=== PATIENT | female | born 1990 | race Caucasian/White ===

== ENCOUNTER 2017-09-19 18:00 | Observation (INO) | payer SELFPAY ==
[2017-09-19 18:28] LABS: #Eosinphils 0.2 thou/uL (0.0-0.7); #Lymphocytes 2.5 thou/uL (1.20-3.40); #Monocytes 0.3 thou/uL (0.11-0.59); #Neutrophils 2.6 thou/uL (1.40-6.50); %Basophils 0.8 % (0.0-1.0); %Eosinophils 3.5 % (0.0-10.0); %Monocytes 5.9 % (0.0-10.0); %Neutrophils 45.8 % (42.0-75.0); Hemoglobin 15.3 g/dL (12.0-16.0); Mean Corpuscular HGB CONC 34.7 g/dL (32.0-36.0); Mean Corpuscular Hemoglobin 36.1 pg (27.0-31.0); Mean Platelet Volume 6.3 fL (7.4-10.4); Platelet Count 232 thou/uL (130-400); RBC Distribution Width 11.7 % (11.5-14.5); Red Blood Cell (RBC) Count 4.24 mill/uL (4.20-5.40); White Blood Cell (WBC) Count 5.7 thou/uL (4.8-10.8)
[2017-09-19 18:43] LABS: BHCG - Serum Negative (NEGATIVE); Pregs Control Background? CLEAR/WHITE (CLR/WHITE); Pregs Control Bar Appear? YES (CONTROL BAR)
[2017-09-19 19:09] LABS: ALT (SGPT) 21 U/L (8-55); AST (SGOT) 14 U/L (5-34); Albumin 4.4 g/dL (3.5-5.0); Alkaline Phosphatase 55 U/L (40-150); Anion Gap 11 mmol/L (10-20); BUN (Urea Nitrogen) 8 mg/dL (7.0-18.7); Bilirubin, Total 0.5 mg/dL (0.2-1.2); Calc. Creatinine Clearance 0 mL/min (70-130); Calcium 9.3 mg/dL (7.8-10.44); Carbon Dioxide 23 mmol/L (22-29); Chloride 108 mmol/L (98-107); Estimated GFR-MDRD 86; Globulin 3.3 g/dL (2.4-3.5); Glucose 84 mg/dL (70-105); Lipase 31 U/L (8-78); Protein, Total 7.7 g/dL (6.0-8.3); Sodium 138 mmol/L (136-145)
[2017-09-19] MEDS ORDERED: Pantoprazole 40 MG VIAL ONE (19:41)
[2017-09-19] MEDS ORDERED: Ketorolac Tromethamine 30 MG/ML VIAL ONE (19:41)
--- NOTE | 2017-09-19 20:09 | ULT ---
GALLBLADDER ULTRASOUND: History: Abdominal pain. FINDINGS: The liver is mildly enlarged measuring up to 19 cm. There are echogenic gallstones seen within the ga llbladder lumen. Gallbladder wall does not appear thickened. The common duct, however, is dilated koby suring at 9 mm. No definite evidence of intrahepatic ductal dilatation. The visualized pancreas appea rs unremarkable. Right kidney is unremarkable. IMPRESSION: 1. Cholelithiasis. 2. Dilated common bile duct. 3. Technologist describes a negative Barakat sign. POS: [facility]
[2017-09-19 20:48] LABS: Bilirubin Negative (Negative); Blood, Urine Negative (Negative); Clarity CLEAR (Clear); Glucose, Urine (Dipstick) Negative (Negative); Leukocyte Negative (Negative); Nitrite Negative (Negative); Protein, Urine (Dipstick) Negative (Neg-Trace); Urobilinogen 0.2 mg/dL (0.2-1.0)
[2017-09-19] MEDS ORDERED: Promethazine HCl 25 MG/ML VIAL SLOW IVP PRN (23:04)
[2017-09-19] MEDS ORDERED: Acetaminophen 325 MG TAB PO PRN (23:04)
[2017-09-19] MEDS ORDERED: Ondansetron ODT 4 MG TAB SL PRN (23:04)
[2017-09-19] MEDS ORDERED: Ondansetron HCl/PF 4 MG/2 ML Vial IVP PRN ×2 (23:04→23:06)
[2017-09-19] MEDS ORDERED: Sodium Chloride 0.9% 1,000 ML IV SCH (23:04)
[2017-09-19] MEDS ORDERED: Morphine 2 MG/ML SYRINGE SLOW IVP PRN (23:06)
[2017-09-19] MEDS ORDERED: Dextrose 50% Abboject 50 ML SYRINGE SLOW IVP PRN (23:06)
[2017-09-19] MEDS ORDERED: Dextrose 5% in Water 1,000 ML IV PRN (23:06)
[2017-09-19] MEDS ORDERED: Famotidine/PF 20 mg/2ml Vial SLOW IVP SCH (23:15)
--- NOTE | 2017-09-20 00:36 | HP ---
DATE OF ADMISSION: 09/19/2017 CHIEF COMPLAINT: Epigastric abdominal pain, nausea, vomiting, cholelithiasis. HISTORY OF PRESENT ILLNESS: Patient is a 27-year-old morbidly obese white female. She gives a 6-mon th history of known cholelithiasis. She never followed up for surgery regarding this, because the pa in would subside. She notes that about a week ago, she developed epigastric abdominal pain with naus ea and vomiting. She subsequently states that she has been unable to keep anything down and has had repeated episodes of nausea or vomiting as well as ongoing episodes of epigastric and right upper esperanza drant pain. She presented to the emergency room for evaluation regarding this. She was seen by Dr. Jose Brown, who performed evaluation in the emergency room and subsequently consulted myself. A gallbladder ultrasound reveals cholelithiasis with a 9 mm common bile duct. Laboratory studies rev ealed an essentially normal CBC with white blood cell count of 5.7 and hemoglobin 15.3. Chemistry pr ofile reveals normal values including liver function tests and BUN and creatinine. test is negative. PAST MEDICAL HISTORY: Significant for depression. PAST SURGICAL HISTORY: She has had surgery for nasal fracture, section x2, appendectomy. ALLERGIES: PENICILLIN and SULFA. CURRENT MEDICATIONS: Lexapro and she was placed on omeprazole today. She was unable to hold down th e medication or vomited it. PRIMARY CARE PHYSICIAN: Marlene Arechiga. PERSONAL/SOCIAL HISTORY: She has a boyfriend. She has 2 children. She works at [employer]. She s mokes about half-pack of cigarettes per day. She drinks alcohol occasionally. REVIEW OF SYSTEMS: Otherwise, unremarkable. FAMILY HISTORY: Noncontributory. PHYSICAL EXAMINATION: VITAL SIGNS: She is 5 feet 5 inches tall, weighs about 280 pounds. She is afebrile. Vital signs wi thin normal limits. GENERAL: Well-developed, well-nourished, pleasant, morbidly obese white female resting in bed in no acute distress. Her aunt is present at bedside. She is alert and oriented x3. HEAD, EARS, EYES, NOSE, AND THROAT: Unremarkable. NECK: Supple, without mass or tenderness. LUNGS: Clear to auscultation. CARDIAC: Regular rate and rhythm without murmur. ABDOMEN: Morbidly obese, but soft. She appears to have some discomfort upon palpation in the epigas trium and right upper quadrant, but it is difficult to discern secondary to her obesity. EXTREMITIES: Unremarkable. ASSESSMENT: Patient with apparently severely symptomatic cholelithiasis. Although she does not pres ent with laboratory evidence of dehydration or cholecystitis, her persistent nausea and vomiting asso ciated with her discomfort and known cholelithiasis would dictate that the prudence of proceeding wit h cholecystectomy at this time. PLAN: I discussed the operation in detail with the patient as well as potential risks. She understa nds and agrees to proceed with surgery at this time. She will be admitted for hydration, her laparos copic cholecystectomy, and cholangiogram will be performed tomorrow. I will perform a cholangiogram secondary to the appearance of her duct at 9 mm.
[2017-09-20 01:15] VITALS: BMI 47.2
[2017-09-20] MEDS: D5 1/2 NS w/20 mEq KCL 1,000 ML IV SCH ×3 (01:46→15:47)
[2017-09-20] MEDS ORDERED: Famotidine/PF 20 mg/2ml Vial SLOW IVP SCH (09:00)
[2017-09-20] MEDS ORDERED: Ketorolac Tromethamine 30 MG/ML VIAL ONE (09:36)
[2017-09-20] MEDS ORDERED: cefOXitin 2 GM, Syringe 1 ML in Sterile Water 10 ML SLOW IVP SCH (10:00)
[2017-09-20] MEDS ORDERED: Ketorolac Tromethamine 30 MG/ML VIAL IVP SCH (10:00)
[2017-09-20] MEDS ORDERED: Acetaminophen 1,000 MG in Premix Bag 1 BAG IVPB SCH (10:00)
[2017-09-20] MEDS ORDERED: Bupivacaine/Epinephrine 0.25% 30 ML VIAL ONE (10:20)
[2017-09-20] MEDS ORDERED: Fentanyl 250 MCG/5 ML VIAL ONE (10:24)
[2017-09-20] MEDS ORDERED: Midazolam HCl 2 mg/2 ml Vial ONE (10:24)
[2017-09-20] MEDS ORDERED: Promethazine HCl 25 MG/ML VIAL ONE (10:24)
[2017-09-20] MEDS ORDERED: Iothalamate Meglumine 60% 50 ML VIAL FS ONE (11:23)
--- NOTE | 2017-09-20 13:04 | RAD ---
INTRAOPERATIVE CHOLANGIOGRAM FLUOROSCOPY: HISTORY: Cholecystitis. FINDINGS: Intraoperative fluoroscopy was provided for cholangiogram, as performed by Dr. Nazario. Single spot fluoroscopic images of operative hardware over the gallbladder fossa with hemostasis clips overlying the cystic duct. There is opacification of a nondilated common duct with contrast extending into the duodenum. No filling defects are visible. POS: [facility]
[2017-09-20] MEDS ORDERED: HYDROcodone/Acetaminophen 10/325 mg Tablet PO PRN ×2 (13:54)
[2017-09-20 15:56] VITALS: BP 154/101; TEMP 98.9
[2017-09-20] MEDS ORDERED: Lidocaine 1% PF 5 ML VIAL ONE (17:14)
[2017-09-20] MEDS ORDERED: Glycopyrrolate 0.2 MG/ML 5 ML SYRINGE ONE ×2 (17:14)
[2017-09-20] MEDS ORDERED: Dexamethasone 20 MG/5 ML VIAL ONE (17:14)
[2017-09-20] MEDS ORDERED: Propofol 200 MG/20 ML VIAL ONE (17:14)
[2017-09-20] MEDS ORDERED: Ondansetron HCl/PF 4 MG/2 ML Vial ONE (17:14)
--- NOTE | 2017-09-21 13:54 | OP ---
DATE OF PROCEDURE: 09/20/2017 PREOPERATIVE DIAGNOSIS: Symptomatic cholelithiasis, cholecystitis. POSTOPERATIVE DIAGNOSES: Symptomatic cholelithiasis, cholecystitis. OPERATION PERFORMED: Laparoscopic cholecystectomy with intraoperative cholangiogram. SURGEON: Dr. Akira Nazario ANESTHESIA: General endotracheal. INDICATIONS: The patient is a morbidly obese 27-year-old white female. She presented to the emergen cy room complaining of persistent pain and inability to tolerate oral intake. She has recognized cho lelithiasis and by ultrasound was felt to have a 9 mm common bile duct. For this reason, I have lyssa mmended a cholangiogram. OPERATIVE PROCEDURE IN DETAIL: Informed consent was obtained. The patient was taken to the operatin g room where general endotracheal anesthesia was given with the patient in supine position. After pr epped with ChloraPrep and draped in sterile fashion, local anesthetic was infiltrated and 5 mm right upper quadrant incision was created. Veress needle was passed through the peritoneal cavity. Pneumo peritoneum established using carbon dioxide up to a pressure of 15 mmHg. A 5 mm trocar passed through this same incision. Laparoscopic camera was passed through this port. Under direct vision, an 11 m m umbilical port was placed as well as two additional 5 mm upper quadrant ports. Attention was turne d to the gallbladder. This was without evidence of significant inflammatory change. It was grasped and retracted in cephalad direction. The infundibulum was grasped and retracted laterally and inferi javier. There were adhesions to the gallbladder and the inferior edge of the liver, indicating possibl e prior inflammatory process. These adhesions were all carefully taken down using electrocautery. A ttention was then turned to the apex of the gallbladder. Careful dissection was carried out identify ing the cystic duct and cystic artery. The artery was divided between clips leaving two on the side to remain within the abdomen. The duct was clipped proximally and a ductotomy was created through wh ich a cholangiogram was performed. This revealed normal ductal anatomy with no ductal dilatation, no filling defect, and easy emptying into the duodenum. The cholangiogram was removed, the duct was do ubly clipped and divided. The gallbladder was then carefully dissected out of the gallbladder fossa of the liver and removed through the umbilical port site. Fascia was closed with 0 Vicryl suture usi ng a GraNee needle. The gallbladder fossa was irrigated and cauterized. All ports and instruments r emoved under direct vision. Pneumoperitoneum was carefully evacuated. Quarter percent Marcaine with epinephrine was infiltrated at each port site. Skin edges approximated with 4-0 Monocryl subcuticul ar suture. Dermabond was placed externally. There were no complications. The patient tolerated the procedure well and was taken to recovery room in stable condition.
--- NOTE | 2017-09-27 19:57 | EKG ---
Test Reason : PREOP Blood Pressure : / mmHG Vent. Rate : 044 BPM Atrial Rate : 044 BPM P-R Int : 140 ms QRS Dur : 088 ms QT Int : 438 ms P-R-T Axes : 008 032 011 degrees QTc Int : 374 ms Marked sinus bradycardia with Premature atrial complexes Low voltage QRS Abnormal ECG When compared with ECG of 03-OCT-2016 01:09, Premature atrial complexes are now Present Vent. rate has decreased BY 32 BPM QT has shortened Confirmed by ESTELITA QUEEN ([id number]) on 09/27/2017 7:57:06 PM Referred By: BLANCHE Confirmed By:ESTELITA QUEEN
== END 2017-09-20 16:50 | disposition home or self-care (01) ==
LOC: ERS 18:00 → SURG B 23:02
PROVIDERS: ADMIT Specialist; ATTEND Specialist
PROC: 0FT44ZZ Resection of Gallbladder, Percutaneous Endoscopic Approach (ICD-10-PCS; principal; 2017-09-20)
PROC: BF141ZZ Fluoroscopy of Gallbladder, Bile Ducts and Pancreatic Ducts using Low Osmolar Contrast (ICD-10-PCS; 2017-09-20)
DX: K80.10 Calculus of gallbladder with chronic cholecystitis without obstruction (principal); F41.9 Anxiety disorder, unspecified; F17.210 Nicotine dependence, cigarettes, uncomplicated; Z88.0 Allergy status to penicillin; Z88.2 Allergy status to sulfonamides; Z79.2 Long term (current) use of antibiotics; Z98.890 Other specified postprocedural states
CPT/HCPCS: 36415; 47532; 76705; 80053; 81003; 82150; 83690; 84703; 85025; 88304; 93005; 93010; 96374; 96375; 96376; A4216; C9113; G0378; J0131; J0694; J1100; J1885; J2001; J2250; J2270; J2405; J2550; J2704; J3010; Q9961; S0028

== ENCOUNTER 2017-10-02 04:41 | Emergency (ER) | payer SELFPAY ==
[2017-10-02 05:25] LABS: #Eosinphils 0.2 thou/uL (0.0-0.7); #Lymphocytes 2.4 thou/uL (1.20-3.40); #Monocytes 0.4 thou/uL (0.11-0.59); #Neutrophils 3.7 thou/uL (1.40-6.50); %Basophils 0.7 % (0.0-1.0); %Eosinophils 3.1 % (0.0-10.0); %Lymphocytes 35.9 % (21.0-51.0); %Monocytes 5.5 % (0.0-10.0); %Neutrophils 54.9 % (42.0-75.0); Hemoglobin 13.5 g/dL (12.0-16.0); Mean Corpuscular HGB CONC 34.9 g/dL (32.0-36.0); Mean Corpuscular Hemoglobin 36.4 pg (27.0-31.0); Mean Platelet Volume 5.8 fL (7.4-10.4); Platelet Count 216 thou/uL (130-400); RBC Distribution Width 11.3 % (11.5-14.5); White Blood Cell (WBC) Count 6.8 thou/uL (4.8-10.8)
[2017-10-02 05:44] LABS: ALT (SGPT) 17 U/L (8-55); AST (SGOT) 11 U/L (5-34); Albumin 3.8 g/dL (3.5-5.0); Alkaline Phosphatase 52 U/L (40-150); Anion Gap 9 mmol/L (10-20); BUN (Urea Nitrogen) 12 mg/dL (7.0-18.7); Bilirubin, Total 0.4 mg/dL (0.2-1.2); Calc. Creatinine Clearance 0 mL/min (70-130); Calcium 8.4 mg/dL (7.8-10.44); Carbon Dioxide 23 mmol/L (22-29); Chloride 111 mmol/L (98-107); Estimated GFR-MDRD 79; Globulin 2.6 g/dL (2.4-3.5); Glucose 104 mg/dL (70-105); Lipase 60 U/L (8-78); Potassium 3.9 mmol/L (3.5-5.1); Protein, Total 6.4 g/dL (6.0-8.3); Sodium 139 mmol/L (136-145)
[2017-10-02] MEDS ORDERED: Morphine 4 MG/ML VIAL ONE (06:10)
[2017-10-02] MEDS ORDERED: Ondansetron HCl/PF 4 MG/2 ML Vial ONE (06:11)
[2017-10-02 06:39] LABS: Bilirubin Negative (Negative); Blood, Urine Negative (Negative); Clarity CLEAR (Clear); Glucose, Urine (Dipstick) Negative (Negative); Leukocyte Negative (Negative); Nitrite Negative (Negative); Protein, Urine (Dipstick) Negative (Neg-Trace); Specific Gravity, Urine 1.023 (1.002-1.036); pH, Urine 6.5 (5.0-9.0)
[2017-10-02 06:40] LABS: Pregnancy Test - Urine (BHCG) Negative (Negative)
[2017-10-02 06:41] LABS: Pregu Control Background? CLEAR/WHITE (CLR/WHITE); Pregu Control Bar Appear? YES (CONTROL BAR); Specific Gravity 1.023 (1.002-1.036)
[2017-10-02] MEDS ORDERED: ISOVUE-370 76%-LOCM 1 ML ONE (13:01)
--- NOTE | 2017-10-02 13:57 | CT ---
PRELIMINARY REPORT/[facility]/EMERGENCY AFTER HOURS PROCEDURE: EXAM: CT Abdomen and Pelvis With Intravenous Contrast CLINICAL HISTORY: 27 years old, female; Pain; Abdominal pain; Localized; Right upper quadrant (ruq); Prior surgery; Pat ient HX: Er 6; Pt has ezekiel 2 weeks ago. Pt states for the past 3 days she has had ruq pain radiating to her back. Some nausea with no vomiting. *iv only per ordering doctor TECHNIQUE: Axial computed tomography images of the abdomen and pelvis with intravenous contrast. Coronal reformatted images were created and reviewed. COMPARISON: No relevant prior studies available. FINDINGS: Mildly limited due to streak artifact Lower thorax: No acute findings. ABDOMEN: Liver: Mild hepatomegaly No mass. Gallbladder and bile ducts: Prior cholecystectomy. Question trace fluid in the gallbladder fossa No d uctal dilation. Pancreas: Unremarkable. No mass. No ductal dilation. Spleen: Unremarkable. No splenomegaly. Adrenals: Unremarkable. No mass. Kidneys and ureters: Question punctate right renal calculus No solid mass. No hydronephrosis. Stomach and bowel: Unremarkable. No obstruction. No mucosal thickening. Appendix: No findings to suggest acute appendicitis. PELVIS: Bladder: Decompressed Reproductive: Question fibroid uterus ABDOMEN and PELVIS: Intraperitoneal space: Unremarkable. No free air. No significant fluid collection. Bones/joints: No acute fracture. No dislocation. Soft tissues: Unremarkable. Vasculature: Unremarkable. No abdominal aortic aneurysm. Lymph nodes: Unremarkable. No enlarged lymph nodes. IMPRESSION: Status post cholecystectomy with trace residual fluid in the gallbladder fossa Question punctate nonobstructing right renal calculus Thank you for allowing us to participate in the care of your patient. Dictated and Authenticated by: See Aguilar MD 10/02/2017 7:32 AM Central Time ([place] & [place]) FINAL REPORT EMERGENCY AFTER HOURS CT ABDOMEN AND PELVIS WITH IV CONTRAST: Date: 10/02/17 IMPRESSION: I agree with the preliminary interpretation given by vRlalo. There is no definite acute abnormality inv olving the abdomen or pelvis. Postop cholecystectomy changes are seen without significant fluid colle ction in the gallbladder fossa. No evidence for free intraperitoneal fluid. There is trace pneumoperi toneum in the right upper quadrant, which may be postoperative in nature given the lack of additional findings such as fat stranding and the proximity to the patient's surgical date. Findings discussed with Dr. Gerard at 0751 hours on 10/02/17. CODE CR. POS: [facility]
== END 2017-10-02 08:01 | disposition home or self-care (01) ==
LOC: ERS 04:41
DX: R10.9 Unspecified abdominal pain (principal); F41.9 Anxiety disorder, unspecified; F31.9 Bipolar disorder, unspecified; F17.210 Nicotine dependence, cigarettes, uncomplicated
CPT/HCPCS: 36415; 74177; 80053; 81003; 81025; 83690; 85025; 96374; 96375; J2270; J2405

== ENCOUNTER 2017-10-13 18:52 | Emergency (ER) | payer SELFPAY ==
[2017-10-13 20:12] LABS: Bilirubin Small (Negative); Blood, Urine Negative (Negative); Clarity CLOUDY (Clear); Glucose, Urine (Dipstick) Negative (Negative); Leukocyte Small (Negative); Nitrite Negative (Negative); Protein, Urine (Dipstick) 100 mg/dL (Neg-Trace)
[2017-10-13 20:14] LABS: Bacteria/HPF 2+ HPF (None Seen); Pathc Cast-AUWi Flag 2.32 (0-2.49); Squamous Epithelial 21-50 HPF (0-3)
[2017-10-13 20:26] LABS: Hyaline Casts/LPF 0-3 HYALINE CAST LPF (0-3 Hyaline); RBC/HPF 0-3 HPF (0-3); Renal Epithelial None Seen HPF (0-3); Transitional Epithelial NONE SEEN HPF (0-3)
[2017-10-13] MEDS ORDERED: Mag-Al 1200 mg/1200 mg/30 ML UDCUP ONE (20:36)
[2017-10-13] MEDS ORDERED: Lidocaine Viscous Sol 2% 15 ml UD Cup ONE (20:36)
[2017-10-13] MEDS ORDERED: Metoclopramide HCl 10 MG/2 ML VIAL ONE (20:36)
[2017-10-13 20:53] LABS: Pregnancy Test - Urine (BHCG) Negative (Negative); Pregu Control Background? CLEAR/WHITE (CLR/WHITE); Pregu Control Bar Appear? YES (CONTROL BAR)
--- NOTE | 2017-10-13 21:03 | RAD ---
CHEST PA AND LATERAL: 10/13/17 HISTORY: 27-year-old female with history of cough and panic attack. COMPARISON: 10/03/16. FINDINGS: heart size is within normal limits. The lungs are clear. IMPRESSION: No acute intrathoracic disease. POS: [facility]
--- NOTE | 2017-10-16 00:27 | EKG ---
Test Reason : Blood Pressure : / mmHG Vent. Rate : 069 BPM Atrial Rate : 069 BPM P-R Int : 150 ms QRS Dur : 084 ms QT Int : 404 ms P-R-T Axes : 036 019 006 degrees QTc Int : 432 ms Normal sinus rhythm with sinus arrhythmia Normal ECG Confirmed by NOEL TEJADA ([id number]), art editor BRITTNY KNGIHT ([id number]) on 10/16/2017 12:25:36 AM Referred By: Confirmed By:NOEL TEJADA
== END 2017-10-13 22:51 | disposition home or self-care (01) ==
LOC: ERS 18:52
DX: F43.9 Reaction to severe stress, unspecified (principal); F41.9 Anxiety disorder, unspecified; F31.9 Bipolar disorder, unspecified; F17.210 Nicotine dependence, cigarettes, uncomplicated; Z71.6 Tobacco abuse counseling; Z79.899 Other long term (current) drug therapy
CPT/HCPCS: 71046; 81003; 81015; 81025; 93005; 96365; 96366; 99406; J2765

== ENCOUNTER 2018-08-07 18:21 | Emergency (ER) | payer SELFPAY | END 2018-08-07 20:10 | disposition home or self-care (01) | LOC: ERS 18:21 | DX: K02.9 Dental caries, unspecified (principal); F31.9 Bipolar disorder, unspecified; F41.9 Anxiety disorder, unspecified; F17.210 Nicotine dependence, cigarettes, uncomplicated; Z79.899 Other long term (current) drug therapy; Z71.6 Tobacco abuse counseling | CPT/HCPCS: 99406 ==

== ENCOUNTER 2019-02-05 09:56 | Emergency (ER) | payer SELFPAY ==
--- NOTE | 2019-02-05 10:35 | RAD ---
XR Knee Rt 4 View STANDARD HISTORY: Injury, right knee pain FINDINGS: No fracture or dislocation is identified.
[2019-02-05] MEDS ORDERED: Ketorolac Tromethamine 60 MG/2 ML VIAL ONE (10:45)
== END 2019-02-05 11:15 | disposition home or self-care (01) ==
LOC: ERS 09:56
DX: S83.91XA Sprain of unspecified site of right knee, initial encounter (principal); F41.9 Anxiety disorder, unspecified; F31.9 Bipolar disorder, unspecified; F17.210 Nicotine dependence, cigarettes, uncomplicated; V19.9XXA Pedal cyclist (driver) (passenger) injured in unspecified traffic accident, initial encounter
CPT/HCPCS: 96372; J1885

== ENCOUNTER 2019-02-08 16:40 | Emergency (ER) | payer SELFPAY ==
[2019-02-08] MEDS ORDERED: Ketorolac Tromethamine 30 MG/ML VIAL ONE (17:10)
[2019-02-08] MEDS ORDERED: Acetaminophen/Codeine 30-300mg Tablet ONE (17:10)
== END 2019-02-08 17:23 | disposition home or self-care (01) ==
LOC: ERS 16:40
DX: M25.561 Pain in right knee (principal); F17.210 Nicotine dependence, cigarettes, uncomplicated; F31.9 Bipolar disorder, unspecified; F41.9 Anxiety disorder, unspecified; Z79.899 Other long term (current) drug therapy
CPT/HCPCS: 96372; 99283; J1885

== ENCOUNTER 2019-06-25 01:00 | Emergency (ER) | payer SELFPAY ==
[2019-06-25 01:52] LABS: #Eosinphils 0.3 thou/uL (0.0-0.7); #Lymphocytes 2.7 thou/uL (1.20-3.40); #Monocytes 0.3 thou/uL (0.11-0.59); #Neutrophils 3.1 thou/uL (1.40-6.50); %Basophils 0.5 % (0.0-1.0); %Eosinophils 4.1 % (0.0-10.0); %Lymphocytes 41.8 % (21.0-51.0); %Monocytes 5.3 % (0.0-10.0); %Neutrophils 48.3 % (42.0-75.0); Hemoglobin 14.9 g/dL (12.0-16.0); Mean Corpuscular HGB CONC 34.5 g/dL (32.0-36.0); Mean Corpuscular Hemoglobin 36.8 pg (27.0-31.0); Mean Platelet Volume 6.8 fL (7.4-10.4); Platelet Count 209 thou/uL (130-400); RBC Distribution Width 11.1 % (11.5-14.5); Red Blood Cell (RBC) Count 4.04 mill/uL (4.20-5.40); White Blood Cell (WBC) Count 6.5 thou/uL (4.8-10.8)
[2019-06-25 02:01] LABS: ALT (SGPT) 24 U/L (8-55); AST (SGOT) 14 U/L (5-34); Albumin 4.2 g/dL (3.5-5.0); Alkaline Phosphatase 54 U/L (40-110); Anion Gap 12 mmol/L (10-20); BUN (Urea Nitrogen) 12 mg/dL (7.0-18.7); Bilirubin, Total 0.3 mg/dL (0.2-1.2); Calc. Creatinine Clearance 0 mL/min (70-130); Calcium 9.5 mg/dL (7.8-10.44); Carbon Dioxide 27 mmol/L (22-29); Chloride 105 mmol/L (98-107); Estimated GFR-MDRD Greater than 90; Globulin 3.2 g/dL (2.4-3.5); Glucose 93 mg/dL (70-105); Protein, Total 7.4 g/dL (6.0-8.3); Sodium 140 mmol/L (136-145)
[2019-06-25] MEDS ORDERED: Ibuprofen 200 MG TAB ONE (03:01)
--- NOTE | 2019-06-25 08:06 | RAD ---
CHEST 1 VIEW PORTABLE: Date: 06/25/19 HISTORY: Chest pain. FINDINGS: Heart size is normal. The lungs are clear. No pneumonia, edema, or pleural effusion. IMPRESSION: No acute intrathoracic disease. Stable from prior study. POS: [facility]
== END 2019-06-25 03:18 | disposition home or self-care (01) ==
LOC: ERS 01:00
DX: R07.89 Other chest pain (principal); R51 Headache; M25.512 Pain in left shoulder; F17.210 Nicotine dependence, cigarettes, uncomplicated; F41.9 Anxiety disorder, unspecified; F31.9 Bipolar disorder, unspecified
CPT/HCPCS: 36415; 71045; 80053; 84484; 85025; 93005; 94760

== ENCOUNTER 2019-10-15 12:24 | Emergency (ER) | payer OTHER, SELFPAY ==
--- NOTE | 2019-10-15 13:35 | RAD ---
PORTABLE CHEST 1 VIEW: DATE: 10/15/2019. TIME: 1:01 PM. HISTORY: Shortness of breath, cough. FINDINGS: Comparison is made with the exam of 06/25/2019. The heart size is normal. The lungs are expanded without focal areas of consolidation, pneumothorace s, or pleural effusions. IMPRESSION: No radiographic evidence of acute cardiopulmonary process. POS: [facility]
[2019-10-15 14:36] LABS: #Basophils 0.1 thou/uL (0.0-0.2); #Eosinphils 0.2 thou/uL (0.0-0.7); #Lymphocytes 1.9 thou/uL (1.20-3.40); #Monocytes 0.5 thou/uL (0.11-0.59); #Neutrophils 3.7 thou/uL (1.40-6.50); %Basophils 1.6 % (0.0-1.0); %Eosinophils 3.5 % (0.0-10.0); %Lymphocytes 29.7 % (21.0-51.0); %Neutrophils 58.3 % (42.0-75.0); Hemoglobin 14.9 g/dL (12.0-16.0); Mean Corpuscular HGB CONC 34.7 g/dL (32.0-36.0); Mean Corpuscular Hemoglobin 37.4 pg (27.0-31.0); Mean Platelet Volume 6.4 fL (7.4-10.4); Platelet Count 194 thou/uL (130-400); Red Blood Cell (RBC) Count 3.98 mill/uL (4.20-5.40); White Blood Cell (WBC) Count 6.4 thou/uL (4.8-10.8)
[2019-10-15 14:57] LABS: ALT (SGPT) 31 U/L (8-55); AST (SGOT) 17 U/L (5-34); Albumin 4.2 g/dL (3.5-5.0); Alkaline Phosphatase 58 U/L (40-110); Anion Gap 13 mmol/L (10-20); BUN (Urea Nitrogen) 9 mg/dL (7.0-18.7); Bilirubin, Total 0.3 mg/dL (0.2-1.2); Calc. Creatinine Clearance 0 mL/min (70-130); Calcium 8.9 mg/dL (7.8-10.44); Carbon Dioxide 21 mmol/L (22-29); Chloride 111 mmol/L (98-107); Estimated GFR-MDRD Greater than 90; Globulin 2.9 g/dL (2.4-3.5); Glucose 92 mg/dL (70-105); MDiff Complete? YES; Macrocytosis SLIGHT = 6-15 cells (100X) (0-5/hpf); Platelet Morphology Comment Appears Adequate; Potassium 3.7 mmol/L (3.5-5.1); Protein, Total 7.1 g/dL (6.0-8.3); Sodium 141 mmol/L (136-145)
== END 2019-10-15 16:28 | disposition home or self-care (01) ==
LOC: ERS 12:24
DX: R05 Cough (principal); R06.00 Dyspnea, unspecified; R19.7 Diarrhea, unspecified; F41.9 Anxiety disorder, unspecified; F17.210 Nicotine dependence, cigarettes, uncomplicated
CPT/HCPCS: 36415; 71045; 80053; 84484; 85025; 87804; 93005; U0001

== ENCOUNTER 2020-04-25 08:56 | Emergency (ER) | payer OTHER ==
[2020-04-25] MEDS ORDERED: Ondansetron PF 4 MG/2 ML Vial ONE (09:14)
[2020-04-25] MEDS ORDERED: Lidocaine Viscous Sol 2% 15 ml UD Cup ONE (09:15)
[2020-04-25] MEDS ORDERED: Pantoprazole 40 MG VIAL ONE (09:15)
[2020-04-25] MEDS ORDERED: Mag-Al 1200 mg/1200 mg/30 ML UDCUP ONE (09:15)
[2020-04-25 09:17] LABS: Bilirubin Negative (Negative); Blood, Urine Negative (Negative); Clarity Clear (Clear); Glucose, Urine (Dipstick) Normal (Negative); Ketone, Urine Negative (Negative); Leukocyte Negative Leu/uL (Negative); Nitrite Negative (Negative); Protein, Urine (Dipstick) 10 mg/dL (Neg-Trace); Specific Gravity, Urine 1.028 (1.002-1.036); Urobilinogen Normal mg/dL (Less than 2)
[2020-04-25 09:25] LABS: Pregnancy Test - Urine (BHCG) Negative (Negative); Pregu Control Background? CLEAR/WHITE (CLR/WHITE); Pregu Control Bar Appear? YES (CONTROL BAR); Specific Gravity 1.028 (1.002-1.036)
[2020-04-25] MEDS ORDERED: Iopamidol-370 76% 500 ML 1 ML ONE (09:42)
[2020-04-25 09:49] LABS: #Basophils 0.1 thou/uL (0.0-0.2); #Eosinphils 0.4 thou/uL (0.0-0.7); #Lymphocytes 1.5 thou/uL (1.20-3.40); #Monocytes 0.4 thou/uL (0.11-0.59); #Neutrophils 4.5 thou/uL (1.40-6.50); %Basophils 1.4 % (0.0-1.0); %Eosinophils 5.5 % (0.0-10.0); %Lymphocytes 21.7 % (21.0-51.0); %Monocytes 5.7 % (0.0-10.0); %Neutrophils 65.7 % (42.0-75.0); White Blood Cell (WBC) Count 6.9 thou/uL (4.8-10.8)
[2020-04-25] MEDS ORDERED: Morphine 4 MG/ML VIAL ONE (09:53)
[2020-04-25 10:04] LABS: Hemoglobin 15.8 g/dL (12.0-16.0); Mean Corpuscular Hemoglobin 37.8 pg (27.0-31.0); Mean Platelet Volume 7.6 fL (7.4-10.4); Platelet Count 188 thou/uL (130-400); RBC Distribution Width 11.2 % (11.5-14.5); Red Blood Cell (RBC) Count 4.18 mill/uL (4.20-5.40)
[2020-04-25 10:15] LABS: MDiff Complete? YES; Macrocytosis SLIGHT = 6-15 cells (100X) (0-5/hpf); Platelet Morphology Comment Appears Adequate; Polychromasia SLIGHT = 2-3 cells (100X) (0-2/hpf)
[2020-04-25] MEDS ORDERED: Ketorolac Tromethamine 30 MG/ML VIAL ONE (10:20)
[2020-04-25] MEDS ORDERED: Fentanyl 100 MCG/2 ML VIAL ONE (10:20)
[2020-04-25 10:38] LABS: ALT (SGPT) 24 U/L (8-55); AST (SGOT) 20 U/L (5-34); Albumin 4.2 g/dL (3.5-5.0); Alkaline Phosphatase 70 U/L (40-110); Anion Gap 13 mmol/L (10-20); BUN (Urea Nitrogen) 8 mg/dL (7.0-18.7); Bilirubin, Total 0.3 mg/dL (0.2-1.2); Calc. Creatinine Clearance 0 mL/min (70-130); Calcium 9.1 mg/dL (7.8-10.44); Carbon Dioxide 23 mmol/L (22-29); Chloride 105 mmol/L (98-107); Estimated GFR-MDRD 85; Globulin 3.3 g/dL (2.4-3.5); Glucose 99 mg/dL (70-105); Lipase 28 U/L (8-78); Potassium 4.2 mmol/L (3.5-5.1); Protein, Total 7.5 g/dL (6.0-8.3); Sodium 137 mmol/L (136-145)
--- NOTE | 2020-04-25 13:07 | CT ---
CT ABDOMEN AND PELVIS WITH IV CONTRAST: Date: 04/25/2020 HISTORY: Epigastric abdominal pain. Nausea and vomiting. FINDINGS: The patient is post cholecystectomy and appendectomy. The lung bases are clear. The liver, spleen, pancreas, adrenal glands, and kidneys are normal. No oscar e air, free fluid, or lymphadenopathy seen in the abdomen or pelvis. The small bowel loops are not ab normally dilated. Uterus and ovaries are present. The aorta is normal caliber. No acute osseous abnor malities are seen. IMPRESSION: No acute process. POS: [facility]
== END 2020-04-25 13:24 | disposition home or self-care (01) ==
LOC: ERS 08:56
DX: R10.13 Epigastric pain (principal); G43.909 Migraine, unspecified, not intractable, without status migrainosus; F41.9 Anxiety disorder, unspecified; F31.9 Bipolar disorder, unspecified; F17.210 Nicotine dependence, cigarettes, uncomplicated; Z79.899 Other long term (current) drug therapy
CPT/HCPCS: 74177; 80053; 81003; 81025; 83690; 84484; 85025; 93005; 96374; 96375; C9113; J1885; J2270; J2405; J3010; Q9967

== ENCOUNTER 2020-05-20 09:40 | Emergency (ER) | payer MEDICAID ==
[2020-05-20 10:43] LABS: #Basophils 0.1 thou/uL (0.0-0.2); #Eosinphils 0.2 thou/uL (0.0-0.7); #Lymphocytes 2.2 thou/uL (1.20-3.40); #Monocytes 0.5 thou/uL (0.11-0.59); #Neutrophils 4.9 thou/uL (1.40-6.50); %Basophils 0.8 % (0.0-1.0); %Eosinophils 2.8 % (0.0-10.0); %Lymphocytes 27.4 % (21.0-51.0); %Monocytes 6.3 % (0.0-10.0); %Neutrophils 62.6 % (42.0-75.0); Hemoglobin 14.6 g/dL (12.0-16.0); Mean Corpuscular HGB CONC 35.6 g/dL (32.0-36.0); Mean Corpuscular Hemoglobin 37.6 pg (27.0-31.0); Mean Platelet Volume 6.7 fL (7.4-10.4); Platelet Count 193 thou/uL (130-400); RBC Distribution Width 10.8 % (11.5-14.5); Red Blood Cell (RBC) Count 3.89 mill/uL (4.20-5.40); White Blood Cell (WBC) Count 7.9 thou/uL (4.8-10.8)
[2020-05-20 11:04] LABS: ALT (SGPT) 19 U/L (8-55); AST (SGOT) 15 U/L (5-34); Albumin 4.1 g/dL (3.5-5.0); Alkaline Phosphatase 55 U/L (40-110); Anion Gap 13 mmol/L (10-20); BUN (Urea Nitrogen) 7 mg/dL (7.0-18.7); Calc. Creatinine Clearance 0 mL/min (70-130); Calcium 9.1 mg/dL (7.8-10.44); Carbon Dioxide 23 mmol/L (22-29); Chloride 105 mmol/L (98-107); Estimated GFR-MDRD Greater than 90; Glucose 91 mg/dL (70-105); Potassium 3.5 mmol/L (3.5-5.1); Protein, Total 7.1 g/dL (6.0-8.3); Sodium 137 mmol/L (136-145)
[2020-05-20] MEDS ORDERED: Ondansetron PF 4 MG/2 ML Vial ONE (12:07)
--- NOTE | 2020-05-20 12:35 | ULT ---
FIRST TRIMESTER OBSTETRICAL ULTRASOUND: Date: 05/20/2020 INDICATION: History of abdominal pain and 6 week . TECHNIQUE: Ricketts scale, color Doppler, and M-Mode Doppler images were obtained of the pelvis via a transabdominal and transvaginal approach. FINDINGS: There is a single, live intrauterine gestation that contains a small pole. Yolk sac is present measuring 3.7 mm. Cardiac activity is 88 beats/minute. Mean sac diameter is 1.63 cm. [place]-rump lengt h 7.2 mm. The average gestational age by ultrasound is 6 weeks and 1 day. Estimated gestational age b y ultrasound is 6 weeks and 4 days, with an estimated due date is 01/09/2021. Estimated clinical age is 6 weeks and 1 day, with an estimated due date of 01/12/2021. The uterus measures 13.1 x 6.8 x 6.7 cm. The adnexa were not well seen. Small nabothian cyst is seen at the level of the cervix. No free fluid is evident. IMPRESSION: Single, live intrauterine gestation, with size and dates as above. POS: [facility]
[2020-05-20] MEDS ORDERED: Promethazine HCl 25 MG/ML VIAL ONE (13:37)
== END 2020-05-20 13:57 | disposition home or self-care (01) ==
LOC: ERS 09:40
DX: O21.9 Vomiting of pregnancy, unspecified (principal); Z3A.01 Less than 8 weeks gestation of pregnancy; O99.891 Other specified diseases and conditions complicating pregnancy; R10.31 Right lower quadrant pain; R10.11 Right upper quadrant pain; O99.341 Other mental disorders complicating pregnancy, first trimester; F31.9 Bipolar disorder, unspecified; O99.331 Smoking (tobacco) complicating pregnancy, first trimester; F17.210 Nicotine dependence, cigarettes, uncomplicated
CPT/HCPCS: 36415; 76856; 80053; 83690; 84702; 85025; 96374; 96375; J2405; J2550

== ENCOUNTER 2021-11-16 11:50 | Inpatient (IN) | payer OTHER ==
[~2021-11-16 11:50] MED LIST: Iopamidol-370 76% 500 ML 1 ML ONE
[2021-11-16] MEDS ORDERED: Lidocaine Viscous Sol 2% 15 ml UD Cup ONE (13:07)
[2021-11-16] MEDS ORDERED: Ondansetron PF 4 MG/2 ML Vial ONE ×2 (13:07→18:10)
[2021-11-16] MEDS ORDERED: Pantoprazole 40 MG VIAL ONE (13:07)
[2021-11-16] MEDS ORDERED: Mag-Al 1200 mg/1200 mg/30 ML UDCUP ONE (13:07)
[2021-11-16 13:20] LABS: BHCG - Serum Negative (NEGATIVE); Pregs Control Background? CLEAR/WHITE (CLR/WHITE); Pregs Control Bar Appear? YES (CONTROL BAR)
[2021-11-16 13:22] LABS: #Basophils 0.1 thou/uL (0.0-0.2); #Eosinphils 0.2 thou/uL (0.0-0.7); #Lymphocytes 2.2 thou/uL (1.20-3.40); #Monocytes 0.3 thou/uL (0.11-0.59); #Neutrophils 3.5 thou/uL (1.40-6.50); %Basophils 0.8 % (0.0-1.0); %Eosinophils 3.1 % (0.0-10.0); %Lymphocytes 34.8 % (21.0-51.0); %Monocytes 5.2 % (0.0-10.0); %Neutrophils 56.1 % (42.0-75.0); Hemoglobin 15.5 g/dL (12.0-16.0); Mean Corpuscular HGB CONC 34.7 g/dL (32.0-36.0); Mean Corpuscular Hemoglobin 37.1 pg (27.0-31.0); Mean Platelet Volume 6.5 fL (7.4-10.4); Platelet Count 214 thou/uL (130-400); RBC Distribution Width 11.1 % (11.5-14.5); Red Blood Cell (RBC) Count 4.18 mill/uL (4.20-5.40); White Blood Cell (WBC) Count 6.3 thou/uL (4.8-10.8)
[2021-11-16 13:37] LABS: ALT (SGPT) 18 U/L (8-55); AST (SGOT) 24 U/L (5-34); Albumin 4.1 g/dL (3.5-5.0); Alkaline Phosphatase 63 U/L (40-110); Anion Gap 13 mmol/L (10-20); BUN (Urea Nitrogen) 8 mg/dL (7.0-18.7); Bilirubin, Total 0.5 mg/dL (0.2-1.2); Calc. Creatinine Clearance 0 mL/min (70-130); Carbon Dioxide 22 mmol/L (22-29); Chloride 108 mmol/L (98-107); Globulin 3.8 g/dL (2.4-3.5); Glucose 91 mg/dL (70-105); Lipase 23 U/L (8-78); Potassium 4.6 mmol/L (3.5-5.1); Protein, Total 7.9 g/dL (6.0-8.3); Sodium 138 mmol/L (136-145)
[2021-11-16 14:10] LABS: MDiff Complete? YES; Macrocytosis SLIGHT = 6-15 cells (100X) (0-5/hpf); Platelet Morphology Comment Appears Adequate; Polychromasia SLIGHT = 2-3 cells (100X) (0-2/hpf)
[2021-11-16 15:14] LABS: Bilirubin Negative (Negative); Blood, Urine Negative (Negative); Clarity Clear (Clear); Glucose, Urine (Dipstick) Normal (Negative); Ketone, Urine Negative (Negative); Leukocyte Negative Leu/uL (Negative); Nitrite Negative (Negative); Protein, Urine (Dipstick) Negative (Neg-Trace); Specific Gravity, Urine 1.016 (1.002-1.036); Urobilinogen Normal mg/dL (Less than 2); pH, Urine 6.5 (5.0-9.0)
[2021-11-16] MEDS ORDERED: Morphine 4 MG/ML VIAL ONE ×2 (15:27→17:02)
[2021-11-16] MEDS ORDERED: Ondansetron PF 4 MG/2 ML Vial IVP PRN (19:15)
[2021-11-16] MEDS ORDERED: Ondansetron ODT 4 MG TAB SL PRN (19:15)
[2021-11-16 19:47] VITALS: BMI 48.9
[2021-11-16] MEDS: Sodium Chloride 0.9% 1,000 ML IV SCH (20:19)
[2021-11-16] MEDS ORDERED: Senokot S 8.6-50 MG TAB PO PRN (20:27)
[2021-11-16] MEDS: Pantoprazole 40 MG VIAL IVP SCH (20:38)
[2021-11-16] MEDS ORDERED: Nicotine 14 MG PATCH TD PRN (21:00)
[2021-11-17] MEDS: Sodium Chloride 0.9% 1,000 ML IV SCH (03:37)
[2021-11-17 06:34] LABS: Anion Gap 13 mmol/L (10-20); BUN (Urea Nitrogen) 8 mg/dL (7.0-18.7); Calc. Creatinine Clearance 235 mL/min (70-130); Calcium 8.2 mg/dL (7.8-10.44); Carbon Dioxide 18 mmol/L (22-29); Chloride 109 mmol/L (98-107); Glucose 84 mg/dL (70-105); Potassium 4.2 mmol/L (3.5-5.1); Sodium 136 mmol/L (136-145)
[2021-11-17 07:22] LABS: #Eosinphils 0.2 thou/uL (0.0-0.7); #Lymphocytes 1.8 thou/uL (1.20-3.40); #Monocytes 0.3 thou/uL (0.11-0.59); #Neutrophils 3.1 thou/uL (1.40-6.50); %Eosinophils 2.8 % (0.0-10.0); %Monocytes 5.6 % (0.0-10.0); %Neutrophils 57.6 % (42.0-75.0); Hemoglobin 14.6 g/dL (12.0-16.0); Mean Corpuscular HGB CONC 33.9 g/dL (32.0-36.0); Mean Corpuscular Hemoglobin 36.9 pg (27.0-31.0); Mean Platelet Volume 6.3 fL (7.4-10.4); Platelet Count 201 thou/uL (130-400); RBC Distribution Width 11.4 % (11.5-14.5); Red Blood Cell (RBC) Count 3.95 mill/uL (4.20-5.40); White Blood Cell (WBC) Count 5.4 thou/uL (4.8-10.8)
[2021-11-17] MEDS: Pantoprazole 40 MG VIAL IVP SCH ×2 (08:31→20:56)
[2021-11-17] MEDS: Acetaminophen 325 MG TAB PO PRN ×2 (08:32→12:23)
[2021-11-17] MEDS ORDERED: Ondansetron PF 4 MG/2 ML Vial IVP PRN (08:58)
[2021-11-17] MEDS: D5 1/2 NS w/20 mEq KCL 1,000 ML IV SCH (09:14)
[2021-11-17] MEDS: Sucralfate 1 GM TAB PO SCH ×3 (12:21→20:55)
[2021-11-17 12:35] LABS: SARS-CoV-2 PCR by NAA Not Detected (NotDetected)
[2021-11-18] MEDS: D5 1/2 NS w/20 mEq KCL 1,000 ML IV SCH (05:45)
[2021-11-18 06:05] LABS: #Eosinphils 0.1 thou/uL (0.0-0.7); #Lymphocytes 1.8 thou/uL (1.20-3.40); #Monocytes 0.3 thou/uL (0.11-0.59); #Neutrophils 2.8 thou/uL (1.40-6.50); %Basophils 0.1 % (0.0-1.0); %Lymphocytes 36.5 % (21.0-51.0); %Monocytes 5.4 % (0.0-10.0); Hemoglobin 13.9 g/dL (12.0-16.0); Mean Corpuscular HGB CONC 34.2 g/dL (32.0-36.0); Mean Platelet Volume 6.8 fL (7.4-10.4); Platelet Count 177 thou/uL (130-400); RBC Distribution Width 11.1 % (11.5-14.5); Red Blood Cell (RBC) Count 3.76 mill/uL (4.20-5.40); White Blood Cell (WBC) Count 5.1 thou/uL (4.8-10.8)
[2021-11-18 06:34] LABS: Anion Gap 10 mmol/L (10-20); BUN (Urea Nitrogen) 5 mg/dL (7.0-18.7); Calc. Creatinine Clearance 248 mL/min (70-130); Calcium 8.8 mg/dL (7.8-10.44); Carbon Dioxide 23 mmol/L (22-29); Chloride 109 mmol/L (98-107); Glucose 98 mg/dL (70-105); Potassium 3.8 mmol/L (3.5-5.1); Sodium 138 mmol/L (136-145)
[2021-11-18] MEDS ORDERED: fentaNYL Citrate/PF 100 MCG/2 ML SYRINGE ONE (07:29)
[2021-11-18] MEDS: Pantoprazole 40 MG VIAL IVP SCH (08:11)
[2021-11-18] MEDS ORDERED: PROPOFOL 200 MG/20 ML VIAL ONE (09:12)
[2021-11-18] MEDS ORDERED: Lidocaine 1% PF 5 ML VIAL ONE (09:12)
[2021-11-18 10:23] VITALS: BP 118/82; TEMP 96.8
[2021-11-18] MEDS ORDERED: Famotidine 20 MG TAB PO SCH (21:00)
[2021-11-19 15:41] LABS: EliA Celiac New Method **** NEW METHOD ****; t-Transglutaminase (tTG) IgA 0.4 EliAU/mL (<7 Negative)
== END 2021-11-18 15:59 | disposition home or self-care (01) | DRG 391 ==
LOC: ERS 11:50 → T4-A 17:09 → OBSVTOIN 11-18 09:17
PROVIDERS: ADMIT Family Medicine; ATTEND Family Medicine
PROC: 0DJ08ZZ Inspection of Upper Intestinal Tract, Via Natural or Artificial Opening Endoscopic (ICD-10-PCS; principal; 2021-11-18)
DX: R11.2 Nausea with vomiting, unspecified (principal); K22.6 Gastro-esophageal laceration-hemorrhage syndrome; Z68.42 Body mass index [BMI] 45.0-49.9, adult; Z20.822 Contact with and (suspected) exposure to COVID-19; K21.9 Gastro-esophageal reflux disease without esophagitis; E66.9 Obesity, unspecified; F12.10 Cannabis abuse, uncomplicated; F41.9 Anxiety disorder, unspecified; F31.9 Bipolar disorder, unspecified; F17.210 Nicotine dependence, cigarettes, uncomplicated; Z88.0 Allergy status to penicillin; Z88.2 Allergy status to sulfonamides; Z90.49 Acquired absence of other specified parts of digestive tract; Z83.79 Family history of other diseases of the digestive system; Z71.6 Tobacco abuse counseling
CPT/HCPCS: 36415; 74177; 80048; 80053; 81003; 83516; 83690; 84703; 85025; 96374; 96375; 96376; C9113; G0378; J2270; J2405; J2704; J3480; J7050; Q9967; U0003; U0005

== ENCOUNTER 2022-01-25 07:35 | Outpatient (CLI) | payer OTHER | END 2022-01-25 07:36 | disposition home or self-care (01) | LOC: NM 07:35 | PROVIDERS: ATTEND Physician Assistant Medical | DX: R11.2 Nausea with vomiting, unspecified (principal); R68.81 Early satiety | CPT/HCPCS: 78264; A9541 ==

== ENCOUNTER 2022-11-11 16:07 | Outpatient (CLI) | payer OTHER | END 2022-11-11 16:08 | disposition home or self-care (01) | LOC: RAD-FRANK 16:07 | PROVIDERS: ATTEND Nurse Practitioner Family | DX: R07.81 Pleurodynia (principal); W19.XXXA Unspecified fall, initial encounter ==

== ENCOUNTER 2022-11-16 16:47 | Emergency (ER) | payer OTHER ==
[2022-11-16] MEDS ORDERED: Orphenadrine Citrate 60 MG/2 ML VIAL ONE (17:18)
[2022-11-16] MEDS ORDERED: Ketorolac Tromethamine 30 MG/ML VIAL ONE (17:18)
== END 2022-11-16 18:12 | disposition home or self-care (01) ==
LOC: ERS 16:47
DX: S20.20XA Contusion of thorax, unspecified, initial encounter (principal); F17.210 Nicotine dependence, cigarettes, uncomplicated; W13.8XXA Fall from, out of or through other building or structure, initial encounter; G43.909 Migraine, unspecified, not intractable, without status migrainosus
CPT/HCPCS: 72070; 96372; J1885; J2360

== ENCOUNTER 2023-06-19 13:19 | Emergency (ER) | payer OTHER, SELFPAY ==
[2023-06-19] MEDS ORDERED: Ketorolac Tromethamine 30 MG/ML VIAL ONE (13:55)
[2023-06-19] MEDS ORDERED: Acetaminophen 500 MG TAB ONE (13:55)
== END 2023-06-19 14:04 | disposition home or self-care (01) ==
LOC: ERS 13:19
DX: S83.91XA Sprain of unspecified site of right knee, initial encounter (principal); F17.210 Nicotine dependence, cigarettes, uncomplicated; X50.1XXA Overexertion from prolonged static or awkward postures, initial encounter
CPT/HCPCS: 96372; J1885